=== PATIENT | male | born 1970 | race Caucasian/White ===

== ENCOUNTER → 2016-06-30 | Outpatient (CLI) | payer BC ==
[2016-06-30 10:16] LABS: CHLORIDE,CL 112 mmol/L (98-110); SODIUM,NA 142 mmol/L (136-146)
== END ==
LOC: MW.CHRC 09:44
PROVIDERS: ATTEND Family Medicine
DX: I12.9 Hypertensive chronic kidney disease with stage 1 through stage 4 chronic kidney disease, or unspecified chronic kidney disease (principal); N18.3 Chronic kidney disease, stage 3 (moderate); R33.9 Retention of urine, unspecified
CPT/HCPCS: 36415; 80053; 80061; 85025; G0103